=== PATIENT | female | born 1960 | race Caucasian/White ===

== ENCOUNTER → 2019-07-10 | Day surgery (SDC) | payer MEDICARE ==
--- NOTE | 2019-06-20 10:27 | Diagnostic Imaging Report ---
EXAM: CHEST 2 VIEWS DATE: 06/20/2019 9:38 AM INDICATION: Preoperative evaluation COMPARISON: None FINDINGS: The trachea is midline. The lungs are symmetrically expanded without evidence for large focal consolidation, pneumothorax, or significant pleural effusion. The cardiomediastinal silhouette and pulmonary vasculature are within normal limits. No acute osseous abnormality is identified. Multiple surgical clips are noted projecting over the left axilla. IMPRESSION: No acute cardiopulmonary process identified. Signed by: Dr. Barber Choudhury MD on 06/20/2019 10:24 AM
[~2019-07-10] MED LIST: ACETAMINOPHEN/CODEINE 300MG - 30MG TAB ONE; CEFAZOLIN SOD 1 GM/NS 50ML 50 ML IV ONE; DEXAMETHASONE SOD PHOS INJ 4 MG/ML VIAL ONE; FENTANYL CITRATE/PF 100MCG/2 ML INJ ONE; KETOROLAC TROMETHAMINE 30 MG/ML VIAL ONE; LIDOCAINE HCL 2% LOCAL INJ 5 ML SDV VIAL INJ ONE; MELOXICAM7.5 MG PO; MIDAZOLAM HCL 2 MG/2 ML VIAL ONE; MULTIVITAMINS1 EAC7 PO; ONDANSETRON HCL INJ 2MG/ML 2ML 2 MG/ML VIAL ONE; PANTOPRAZOLE SO40 MG PO; PHENYLEPHRINE HCL 1% 10 MG/ML VIAL ONE; PROPOFOL IV EMULSION 10 MG/ML 20 ML VIAL ONE; SEVOFLURANE INHAL SOLN 250 ML PEN BTL ONE
--- OUTSIDE RECORDS SUMMARY | 2019-07-10 05:26 | XMS REPORT ---
Author Author [facility] Address Unknown Phone Unavailable Care Team Providers Care Oil Changer Name Role Phone PHUONG PARKER Unavailable Unavailable Problems This patient has no known problems. Allergies, Adverse Reactions, Alerts This patient has no known allergies or adverse reactions. Medications This patient has no known medications. Results Test Description Test Time Test Comments Text Results Atomic Results Result Comments CHEST 2 VIEWS 2019-06-20 10:24:00 [place] [address] Patient Name: ODALYS LOVE MR #: [id number] : 1960 Age/Sex: 58/F Req #: [id number] [facility] Physician: Ordered by: PHUONG PARKER MD Report #: [id number] Location: OR Room/Bed: Procedure: [id number] DX/CHEST 2 VIEWS Exam Date: Exam Time: REPORT STATUS: Signed EXAM: CHEST 2 VIEWS DATE: 06/20/2019 9:38 AM INDICATION: Preo perative evaluation COMPARISON: None FINDINGS: The trachea is midline. The lungs are symmetrically expanded without evidence for large focal consolidation, pneumothorax, or significant pleural effusion. The cardiomediastinal silhouette and pulmonary vasculature are within normal limits. No acute osseous abnormality is identified. Multiple surgical clips are noted projecting over the left axilla. IMPRESSION: No acute cardiopulmonary process identified. Signed by: Dr. Barber Luke MD on 06/20/2019 10:24 AM Dictated By: BARBER LUKE MD 1024 Transcribed By: MARIO on 06/20/19 1024 COPY TO: PHUONG PARKER MD
[2019-07-10 09:40] VITALS: BP 121/84
--- NOTE | 2019-07-10 12:52 | Operative Report ---
DATE OF PROCEDURE: 07/10/2019 SURGEON: Asad Maldonado MD GUNNERY/ORDNANCE OFFICER: Franki Potter, certified PA. PREOPERATIVE DIAGNOSIS: Left knee medial meniscal tear. POSTOPERATIVE DIAGNOSES: 1. Left knee medial meniscal tear. 2. Medial parapatellar plica and lateral meniscal tear. PROCEDURES: Left knee arthroscopy, partial medial meniscectomy, partial lateral meniscectomy, and resection of medial parapatellar plica. INDICATIONS: The patient is a 59-year-old lady, who has clinic signs and symptoms consistent with a medial meniscal tear. There is a palpable clunk in the suprapatellar pouch and medial aspect of the knee. We have discussed the findings and options. The patient would like to proceed with arthroscopic intervention. The risks and benefits have been discussed. She states she understands and wishes to proceed. PROCEDURE IN DETAIL: The patient was brought to the operating room and placed under general anesthetic. Her left lower extremity was prepped and draped in a sterile manner. A preoperative time-out was performed. A tourniquet placed on the upper thigh was inflated to 300 mmHg. Standard arthroscopy portals were established. The knee was insufflated with sterile saline and systematically inspected. The suprapatellar pouch demonstrated some mild synovitis. There was no evidence of loose body. There was a notable prepatellar plica that was photographed. This was resected with a mechanical shaver. There was a fairly notable kissing lesion on the medial femoral condyle. There was some grade 1 changes of chondromalacia of the undersurface of the patella. The trochlear groove was well preserved. The medial and lateral gutters were inspected. There was no loose bodies. The medial compartment was inspected. There was some grade 1 changes of the medial compartment. There was a fairly small radial tear of the medial meniscus. This was debrided back to a stable margin using a combination of biting forceps and a mechanical shaver. Once again, before and after photographs were taken. The cruciate ligaments were intact and stable. There was a more extensive tear of the lateral meniscus. This was also debrided back to a stable margin using a combination of biting forceps and a mechanical shaver. There was a horizontal cleavage component to the tear. Once the lateral meniscus had been thoroughly debrided, the knee was thoroughly irrigated. The arthroscopic instruments were removed. The portal incisions were closed with nylon stitches. Sterile bandage was applied. She was extubated and transported to the recovery room in stable condition. There was no blood loss and all needle and sponge counts were correct. Asad Maldonado MD DR/MIKE /[id number]
== END | disposition home or self-care (01) ==
LOC: OR 05:24
PROVIDERS: ATTEND Specialist
DX: S83.242A Other tear of medial meniscus, current injury, left knee, initial encounter (principal); S83.282A Other tear of lateral meniscus, current injury, left knee, initial encounter; M67.52 Plica syndrome, left knee; F17.200 Nicotine dependence, unspecified, uncomplicated; W01.198A Fall on same level from slipping, tripping and stumbling with subsequent striking against other object, initial encounter; Y92.129 Unspecified place in nursing home as the place of occurrence of the external cause; Z01.810 Encounter for preprocedural cardiovascular examination; Z01.818 Encounter for other preprocedural examination; Z68.35 Body mass index [BMI] 35.0-35.9, adult
CPT/HCPCS: 29880; 71046; 93005; J0690; J1100; J1885; J2001; J2250; J2370; J2405; J2704; J3010

== ENCOUNTER → 2020-05-06 | Day surgery (SDC) | payer MEDICARE, OTHER ==
[2020-05-01 09:28] LABS: BASOPHILS % 0.5 % (0.0-1.0); EOSINOPHILS # (AUTO) 0.2 (0.0-0.4); EOSINOPHILS % 2.7 % (0.0-6.0); HEMATOCRIT 41.5 % (34.2-44.1); HEMOGLOBIN 13.4 g/dL (12.0-16.0); LYMPHOCYTES # (AUTO) 1.7 (1.0-3.2); LYMPHOCYTES % 18.7 % (18.0-39.1); MEAN CORPUSCULAR HEMOGLOBIN 28.2 pg (28-32); MEAN CORPUSCULAR HGB CONC 32.3 g/dL (31-35); MEAN CORPUSCULAR VOLUME 87.2 fL (81-99); MONOCYTES # (AUTO) 0.7 (0.2-0.8); MONOCYTES % 8.2 % (4.4-11.3); NEUTROPHILS # (AUTO) 6.2 (2.1-6.9); NEUTROPHILS % 69.6 % (38.7-80.0); PLATELET COUNT 281 x10e3/uL (140-360); RED BLOOD COUNT 4.76 x10e6/uL (3.6-5.1); RED CELL DISTRIBUTION WIDTH 13.2 % (11.7-14.4)
--- NOTE | 2020-05-01 10:12 | Diagnostic Imaging Report ---
X-ray chest 2 views History: Preop Comparison: 02/17/2019 Findings: Central airways unremarkable. Heart size normal. Aortic contour unremarkable. No pleural effusion. No pneumothorax. Multiple surgical akin left axilla and chest wall. Visualized skeletal structures grossly unremarkable. Upper abdomen unremarkable. Impression: No significant acute abnormality on this exam. No significant change compared with the previous exam except the technique. Signed by: Rico Ford MD on 05/01/2020 10:08 AM
[~2020-05-06] MED LIST changes: -ACETAMINOPHEN/CODEINE 300MG - 30MG TAB ONE; -CEFAZOLIN SOD 1 GM/NS 50ML 50 ML IV ONE; +CELEBREX200 MG PO; +ETOMIDATE 2 MG/ML 10 ML INJ IV ONE; -FENTANYL CITRATE/PF 100MCG/2 ML INJ ONE; -MIDAZOLAM HCL 2 MG/2 ML VIAL ONE; -PHENYLEPHRINE HCL 1% 10 MG/ML VIAL ONE; +VITAMIN C500 M4 PO; +VITAMIN D3250 MC1 PO
[2020-05-06 11:10] VITALS: BP 125/81
--- NOTE | 2020-05-06 12:18 | Operative Report ---
DATE OF PROCEDURE: SURGEON: Keeley Yanez MD PREOPERATIVE DIAGNOSIS: Abnormal uterine bleeding. POSTOPERATIVE DIAGNOSIS: Abnormal uterine bleeding. PROCEDURES: Hysteroscopy, D and C, and polypectomy. COMPLICATIONS: None. ESTIMATED BLOOD LOSS: Minimal. DESCRIPTION OF PROCEDURE: The patient was taken to the OR, where general anesthesia was placed. She was prepped and draped in a normal sterile fashion, placed in the dorsal lithotomy position after examination under anesthesia. A weighted speculum was placed inside the vagina. Cervix was grasped with single-tooth tenaculum. Cavity length using uterine sound measured about 7.5 cm. Cervix was dilated to Hegar's 8 and hysteroscope was introduced using the TruClear. Soft tissue mini was placed inside and large polyp of about 6 cm in length was removed from the uterus and sent to pathology. Sharp curettings were obtained after that and sent to pathology. Otherwise, cavity looked normal. The patient tolerated the procedure well. Laps, instrument, and needle counts were correct x2 at the end of procedure. Keeley Yanez MD DD/MIKE /[id number]
== END | disposition home or self-care (01) ==
LOC: OR 05:50
PROVIDERS: ATTEND Obstetrics & Gynecology
DX: N84.0 Polyp of corpus uteri (principal); K21.9 Gastro-esophageal reflux disease without esophagitis; Z88.1 Allergy status to other antibiotic agents; Z88.2 Allergy status to sulfonamides; Z88.8 Allergy status to other drugs, medicaments and biological substances; Z01.810 Encounter for preprocedural cardiovascular examination; Z01.812 Encounter for preprocedural laboratory examination; Z01.818 Encounter for other preprocedural examination; Z11.59 Encounter for screening for other viral diseases
CPT/HCPCS: 36415; 58558; 71046; 85025; 88305; 93005; J1100; J1885; J2001; J2405; J2704; U0002; 88304